=== PATIENT | female | born 1990 | race Caucasian/White ===

== ENCOUNTER 2016-10-24 20:15 | Emergency (ER) | payer OTHER ==
[~2016-10-24] VITALS: Ht 180.3 cm; Wt 100.5 kg
[~2016-10-24 20:15] MED LIST: NO HOME MEDS; PRENATAL VITAM1 EAC1 PO
[2016-10-24 21:34] LABS: EOSINOPHIL (%) 1.2 % (0-5); EOSINOPHIL COUNT 0.1 K/uL (0-0.3); HEMATOCRIT 45.1 % (36.0-46.0); IMMATURE GRANULOCYTE (%) 0.6 % (0.0-0.7); IMMATURE GRANULOCYTE COUNT 0.1 K/uL; INSTRUMENT ABS NEUTROPHIL CT 9.2 K/uL; LYMPHOCYTE COUNT 0.9 K/uL (1.0-2.8); MCH 30.2 PG (29.0-34.0); MCHC 33.7 G/DL (30.0-36.0); MCV 89.5 FL (83-99); MEAN PLAT.VOLUME 8.6 uM^3 (9.5-12.4); MONOCYTE (%) 6.4 % (3-12); MONOCYTE COUNT 0.7 K/uL (0-0.8); NEUTROPHIL COUNT 9.2 K/uL (1.8-6.4); PLATELET COUNT 401 K/uL (156-360); RBC DIS.WIDTH-CV 12.6 % (11.8-14.6); RBC DIS.WIDTH-SD 41.4 % (39-53); RED BLOOD COUNT 5.04 M/uL (3.80-5.20); WHITE BLOOD COUNT 11.1 K/uL (4.1-10.2)
[2016-10-24 21:45] LABS: CHLORIDE 107 mEq/L (99-109); POTASSIUM 3.7 mEq/L (3.7-5.4); SODIUM 134 mEq/L (136-147)
[2016-10-24 21:47] LABS: GLUCOSE 88 mg/dL (70-99)
[2016-10-24 21:49] LABS: ANION GAP 9 MEQ/L (2-14); TOTAL BILIRUBIN 0.6 mg/dL (0.0-1.0)
[2016-10-24 21:51] LABS: ALKALINE PHOSPHATASE 93 IU/L (3-129); GFR ESTIMATE (CALCULATED) > 59 mL/min/
[2016-10-24 21:52] LABS: UREA NITROGEN (BUN) 8 mg/dL (9-23)
[2016-10-24 21:52] LABS: BILIRUBIN NEGATIVE; BLOOD NEGATIVE; COLOR YELLOW ((YELLOW)); GLUCOSE (STRIP) NEGATIVE; KETONES NEGATIVE; LEUKOCYTES NEGATIVE; NITRITE NEGATIVE; PROTEIN (STRIP) NEGATIVE; UROBILINOGEN 0.2 MG/DL (0.2-1.0)
[2016-10-24 21:53] LABS: ADD MIUA? NO
[2016-10-24 21:54] LABS: LIPASE 17 U/L (1.0-51.0)
[2016-10-24 22:02] LABS: QUANTITATIVE HCG 11853.1 MIU/ML
[2016-10-24] MEDS ORDERED: BENTYL20 MG PO (23:12)
[2016-10-24] MEDS ORDERED: ZOFRAN ODT4 MG PO (23:12)
[2016-10-25 00:06] VITALS: BP 115/67
== END 2016-10-25 00:08 | disposition home or self-care (01) ==
LOC: RME 20:15 → EME 20:15 → RME 10-25 00:08
PROVIDERS: Physician Assistant
DX: O20.0 Threatened abortion (principal); K52.9 Noninfective gastroenteritis and colitis, unspecified; E86.0 Dehydration; Z3A.01 Less than 8 weeks gestation of pregnancy; O99.331 Smoking (tobacco) complicating pregnancy, first trimester
CPT/HCPCS: 76801; 80053; 81003; 83690; 84702; 85025; 87493; 87506; 99281; 99285; J2405; J7030

== ENCOUNTER 2017-02-09 18:28 | Emergency (ER) | payer OTHER ==
[~2017-02-09] VITALS: Ht 180.3 cm; Wt 106.5 kg
[~2017-02-09 18:28] MED LIST changes: +BENTYL20 MG PO; +ZOFRAN ODT4 MG PO
[2017-02-09 19:50] LABS: EOSINOPHIL (%) 0.1 % (0-5); HEMATOCRIT 37.3 % (36.0-46.0); IMMATURE GRANULOCYTE (%) 0.7 % (0.0-0.7); IMMATURE GRANULOCYTE COUNT 0.1 K/uL; INSTRUMENT ABS NEUTROPHIL CT 12.8 K/uL; LYMPHOCYTE COUNT 1.2 K/uL (1.0-2.8); MCH 30.1 PG (29.0-34.0); MCV 88.4 FL (83-99); MEAN PLAT.VOLUME 9.4 uM^3 (9.5-12.4); MONOCYTE (%) 4.4 % (3-12); MONOCYTE COUNT 0.7 K/uL (0-0.8); NEUTROPHIL (%) 86.7 % (45-76); NEUTROPHIL COUNT 12.8 K/uL (1.8-6.4); PLATELET COUNT 326 K/uL (156-360); RBC DIS.WIDTH-CV 13.2 % (11.8-14.6); RBC DIS.WIDTH-SD 43.3 % (39-53); RED BLOOD COUNT 4.22 M/uL (3.80-5.20); WHITE BLOOD COUNT 14.7 K/uL (4.1-10.2)
[2017-02-09 19:59] LABS: CHLORIDE 106 mEq/L (99-109); POTASSIUM 3.3 mEq/L (3.7-5.4); SODIUM 136 mEq/L (136-147)
[2017-02-09 20:01] LABS: GLUCOSE 151 mg/dL (70-99)
[2017-02-09 20:02] LABS: ANION GAP 9 MEQ/L (2-14)
[2017-02-09 20:05] LABS: GFR ESTIMATE (CALCULATED) > 59 mL/min/
[2017-02-09 20:06] LABS: UREA NITROGEN (BUN) 6 mg/dL (9-23)
[2017-02-10 01:42] VITALS: BP 125/78
[2017-02-10 01:56] LABS: INTACT PARATHYROID HORMONE < 6 pg/mL (10-69)
== END 2017-02-10 01:46 | disposition left against medical advice (07) ==
LOC: EME 18:28
PROVIDERS: Nurse Practitioner Family
DX: O99.89 Other specified diseases and conditions complicating pregnancy, childbirth and the puerperium (principal); R20.2 Paresthesia of skin; R20.0 Anesthesia of skin; O26.892 Other specified pregnancy related conditions, second trimester; Z98.890 Other specified postprocedural states; Z3A.21 21 weeks gestation of pregnancy; O16.2 Unspecified maternal hypertension, second trimester; O99.332 Smoking (tobacco) complicating pregnancy, second trimester; F17.200 Nicotine dependence, unspecified, uncomplicated
CPT/HCPCS: 80048; 82310; 83735; 83970; 85025; 99281; 99285

== ENCOUNTER 2017-06-16 08:02 | Inpatient (IN) | payer OTHER ==
[~2017-06-16] VITALS: Ht 180.3 cm; Wt 107.3 kg
[2017-06-16] VITALS (22 sets, daily range): BP systolic 115–141; BP diastolic 63–91
[2017-06-16 09:43] LABS: BASOPHIL COUNT 0.1 K/uL (0-0.1); EOSINOPHIL (%) 1.2 % (0-5); EOSINOPHIL COUNT 0.2 K/uL (0-0.3); HEMATOCRIT 40.6 % (36.0-46.0); IMMATURE GRANULOCYTE COUNT 0.1 K/uL; INSTRUMENT ABS NEUTROPHIL CT 9.7 K/uL; LYMPHOCYTE COUNT 1.6 K/uL (1.0-2.8); MCH 23.8 PG (29.0-34.0); MCHC 30.8 G/DL (30.0-36.0); MCV 77.2 FL (83-99); MEAN PLAT.VOLUME 9.3 uM^3 (9.5-12.4); MONOCYTE (%) 7.1 % (3-12); MONOCYTE COUNT 0.9 K/uL (0-0.8); NEUTROPHIL (%) 77.3 % (45-76); NEUTROPHIL COUNT 9.7 K/uL (1.8-6.4); PLATELET COUNT 319 K/uL (156-360); RBC DIS.WIDTH-CV 15.3 % (11.8-14.6); RBC DIS.WIDTH-SD 42.3 % (39-53); RED BLOOD COUNT 5.26 M/uL (3.80-5.20); WHITE BLOOD COUNT 12.5 K/uL (4.1-10.2)
[2017-06-16] MEDS ORDERED: IBUPROFEN800 MG PO (14:44)
[2017-06-17 07:21] VITALS: BP 120/67
== END 2017-06-18 13:14 | disposition home or self-care (01) | DRG 775 ==
LOC: LDRP-OP 08:02 → 2WEST 08:03 → LDRP-OP 11:19 → 2WEST 14:11 → LDRP-OP 07-22 11:59
PROVIDERS: Nurse Practitioner
PROC: 3E0R3BZ Introduction of Anesthetic Agent into Spinal Canal, Percutaneous Approach (ICD-10-PCS; principal; 2017-06-16)
PROC: 10907ZC Drainage of Amniotic Fluid, Therapeutic from Products of Conception, Via Natural or Artificial Opening (ICD-10-PCS; principal; 2017-06-16)
PROC: 10E0XZZ Delivery of Products of Conception, External Approach (ICD-10-PCS; principal; 2017-06-16)
PROC: 3E033VJ Introduction of Other Hormone into Peripheral Vein, Percutaneous Approach (ICD-10-PCS; principal; 2017-06-16)
PROC: 00HU33Z Insertion of Infusion Device into Spinal Canal, Percutaneous Approach (ICD-10-PCS; principal; 2017-06-16)
DX: O69.81X0 Labor and delivery complicated by cord around neck, without compression, not applicable or unspecified (principal); O99.824 Streptococcus B carrier state complicating childbirth; O99.89 Other specified diseases and conditions complicating pregnancy, childbirth and the puerperium; M41.9 Scoliosis, unspecified; O99.713 Diseases of the skin and subcutaneous tissue complicating pregnancy, third trimester; L30.9 Dermatitis, unspecified; Z3A.39 39 weeks gestation of pregnancy; Z37.0 Single live birth; O99.214 Obesity complicating childbirth; E66.9 Obesity, unspecified; O99.344 Other mental disorders complicating childbirth; F90.9 Attention-deficit hyperactivity disorder, unspecified type; F32.9 Major depressive disorder, single episode, unspecified; F41.9 Anxiety disorder, unspecified; O99.334 Smoking (tobacco) complicating childbirth; F17.210 Nicotine dependence, cigarettes, uncomplicated
CPT/HCPCS: 85025; C1755; J2540; J7120